=== PATIENT | female | born 1950 | race Caucasian/White ===

== ENCOUNTER 2019-11-04 14:25 | Inpatient (IN) | payer OTHER, MEDICARE ==
[2019-11-04] MEDS ORDERED: ONDANSETRON 4 MG/2 ML VIAL ONE ×2 (15:28→16:36)
[2019-11-04] MEDS ORDERED: NA CHLORIDE 0.9% 1,000 ML ONE ×2 (15:28→17:09)
[2019-11-04] MEDS ORDERED: MORPHINE 4 MG/ML SYR ONE ×2 (15:28→17:29)
[2019-11-04] MEDS ORDERED: FAMOTIDINE 20 MG/2 ML VIAL IV ONE (15:28)
[2019-11-04 15:51] LABS: Absolute Lymphocytes (CBC) 2.3 K/uL (0.7-4.9); Basophils % 0.5 % (0-1.3); Hematocrit 44.4 % (36.0-45.0); Lymphocytes % 10.4 % (15.3-44.8); MPV 8.4 fL (7.6-11.3); RBC Red Blood Cell Count 5.08 M/uL (3.86-4.86)
--- NOTE | 2019-11-04 16:26 | RAD REPORT ---
EXAM DESCRIPTION: CT - Abdomen Pelvis W Contrast - 11/04/2019 4:06 pm CLINICAL HISTORY: ABD PAIN COMPARISON: No comparisons TECHNIQUE: Biphasic, helical CT imaging of the abdomen and pelvis was performed following 100 ml non -ionic IV contrast. No oral contrast. All CT scans are performed using dose optimization technique as appropriate and may include automated exposure control or mA/KV adjustment according to patient size. FINDINGS: Minimal lung base scarring or atelectasis present. No pneumothorax or pleural effusion. No pericardial effusion. Moderate-sized hiatal hernia is present. Approximately 30% of the stomach is intrathoracic. Prominent size liver shows diffuse fatty infiltration with no focal liver lesion. No portal vein abno rmality. No gallbladder or biliary tree abnormality. Spleen is unremarkable. Patient has significant peripancreatic fluid and inflammatory stranding. There is a slight decrease i n attenuation in the head of the pancreas. Patient has at least intermediate severity pancreatitis. N o definitive pancreatic parenchymal necrosis seen. No pseudocyst or mass. Duodenal C-loop shows no me asurable secondary involvement from the acute pancreatitis. Fluid extends along the anterior pararena l fascia and minimally into each pericolic gutter. Symmetric renal function is seen with no hydronephrosis or suspicious renal mass. No pyelonephritis o r acute parenchymal process. No bladder abnormalities. No adrenal abnormalities. No dilated bowel loops or bowel wall thickening. Diverticulosis is minimal. Appendix is normal. No fr ee air or pneumatosis. No hernia, mass or bulky lymphadenopathy. No suspicious bony findings. IMPRESSION: Prominent acute pancreatitis findings present. No focal mass or pseudocyst. Attenuation/enhancement in the head of the pancreas is decreased but not definitive for pancreatic ne crosis. Diffuse fatty infiltration of the liver. Hiatal hernia with approximately 30% of the stomach intrathoracic. Appears to be postsurgical change at the diaphragmatic rene.
--- NOTE | 2019-11-04 16:35 | ER ---
Nurse's Notes [facility] Name: Eveline Carter Age: 69 yrs Sex: Female : 1950 Arrival Date: 11/04/2019 Time: 14:26 Bed 5 Private MD: Diagnosis: Abdominal tenderness;Acute pancreatitis;Congenital hiatus hernia;Elevated white blood cell count;Urinary tract infection, site not specified Presentation: 11/03 14:27 Chief complaint: EMS states: Pt c/o N/V, reports 3 episodes of vomiting today, also ph reports diffuse abdominal pain, denies diarrhea or fever, 12.5 phenergan given by EMS. Coronavirus screen: Client denies travel out of the [place] in the last 14 days. nausea, Client presents with at least one sign or symptom that may indicate coronavirus-19. Ebola Screen: No symptoms or risks identified at this time. Initial Sepsis Screen: Does the patient meet any 2 criteria? No. Patient's initial sepsis screen is negative. Does the patient have a suspected source of infection? No. Patient's initial sepsis screen is negative. Risk Assessment: Do you want to hurt yourself or someone else? Patient reports no desire to harm self or others. Onset of symptoms was November 04, 2019. 14:27 Method Of Arrival: EMS: [facility] 14:27 Acuity: NAI 3 ph Historical: - Allergies: 14:49 Erythromycin; ph - Home Meds: 14:49 furosemide 20 mg Oral tab 1 tab once daily [Active]; losartan 100 mg oral tab 1 tab ph once daily [Active]; diltiazem HCl 240 mg Oral cpER 1 cap twice a day [Active]; omeprazole 40 mg Oral cpDR 1 cap once daily [Active]; simvastatin 20 mg Oral tab 1 tab once daily [Active]; fenofibrate 160 mg oral tab 1 tab once daily [Active]; Zyrtec 10 mg Oral tab 1 tab once daily [Active]; alprazolam 0.25 mg Oral TbDL as needed [Active]; montelukast 10 mg oral tab 1 tab once daily [Active]; tizanidine 4 mg oral cap 1 cap nightly [Active]; Vitamin D Oral [Active]; magnesium oral oral [Active]; Xopenex inhalation Inhl [Active]; Symbicort 160-4.5 mcg/actuation inhalation HFAA 2 puffs 2 times per day [Active]; metformin 500 mg Oral Tb24 [Active]; - PMHx: 14:49 Hyperlipidemia; Hypertension; Anxiety; COPD; ph - Immunization history:: Adult Immunizations unknown. - Social history:: Smoking status: unknown. Screenin:37 Abuse screen: Denies threats or abuse. Denies injuries from another. Nutritional ph screening: No deficits noted. Tuberculosis screening: No symptoms or risk factors identified. Fall Risk None identified. Assessment: 14:50 General: Appears in no apparent distress. uncomfortable, Behavior is calm, cooperative, ph appropriate for age, Denies fever. Pain: Complains of pain in abdomen. Neuro: Level of Consciousness is awake, alert, obeys commands, Oriented to person, place, time, situation. Cardiovascular: Capillary refill < 3 seconds in bilateral fingers Patient's skin is warm and dry. Respiratory: Airway is patent Respiratory effort is even, unlabored, Respiratory pattern is regular, symmetrical. GI: Abdomen is round Reports lower abdominal pain, upper abdominal pain, nausea, vomiting. Derm: Skin is intact, Skin is pink, warm \T\ dry. Musculoskeletal: Circulation, motion, and sensation intact. Range of motion: intact in all extremities. 15:41 Reassessment: Patient appears in no apparent distress at this time. Patient and/or ph family updated on plan of care and expected duration. Pain level reassessed. Patient is alert, oriented x 3, equal unlabored respirations, skin warm/dry/pink. 17:00 Reassessment: Patient appears in no apparent distress at this time. Patient and/or ph family updated on plan of care and expected duration. Pain level reassessed. Patient is alert, oriented x 3, equal unlabored respirations, skin warm/dry/pink. 18:15 Reassessment: Patient appears in no apparent distress at this time. Patient and/or ph family updated on plan of care and expected duration. Pain level reassessed. Patient is alert, oriented x 3, equal unlabored respirations, skin warm/dry/pink. Attempted to call report, receiving nurse unavailable. 19:15 Reassessment: Patient appears in no apparent distress at this time. Patient and/or jb4 family updated on plan of care and expected duration. Pain level reassessed. Patient is alert, oriented x 3, equal unlabored respirations, skin warm/dry/pink. 20:15 Reassessment: Patient appears in no apparent distress at this time. Patient and/or jb4 family updated on plan of care and expected duration. Pain level reassessed. Patient is alert, oriented x 3, equal unlabored respirations, skin warm/dry/pink. Report called to DIXIE Sandy. Vital Signs: 14:27 BP 120 / 71; Pulse 68; Resp 18; Temp 98.4(O); Pulse Ox 94% on R/A; Weight 99.79 kg; ph Height 5 ft. 10 in. (177.80 cm); 15:42 BP 112 / 72; Pulse 67; Resp 16; Pulse Ox 94% on R/A; ph 16:30 BP 118 / 78; Pulse 76; Resp 16; Pulse Ox 94% on R/A; ph 17:31 BP 129 / 73; Pulse 78; Resp 18; Pulse Ox 96% on R/A; ph 18:28 BP 126 / 80; Pulse 88; Resp 18; Pulse Ox 94% on R/A; ph 19:00 BP 151 / 89; Pulse 88; Resp 16; Pulse Ox 95% on R/A; jb4 20:00 BP 143 / 71; Pulse 94; Resp 16; Pulse Ox 98% on R/A; jb4 14:27 Body Mass Index 31.57 (99.79 kg, 177.80 cm) ph ED Course: 14:26 Patient arrived in ED. ph 14:29 Darryl Victoria MD is Attending Physician. yeni 14:37 Triage completed. ph 14:49 Arm band placed on Patient placed in an exam room, on a stretcher. ph 14:49 Patient has correct armband on for positive identification. Call light in reach. Side ph rails up X 1. Pulse ox on. NIBP on. Door closed. Noise minimized. Warm blanket given. 14:51 Azucena Falk RN is Primary Nurse. ph 15:16 XRAY Chest (1 view) In Process Unspecified. EDMS 15:34 EKG done, by ED staff, reviewed by Darryl Victoria MD. dh3 15:41 Maintain EMS IV. Dressing intact. Site clean \T\ dry. Gauge \T\ site: [address]. ph 16:06 CT Abd/Pelvis - IV Contrast Only In Process Unspecified. EDMS 16:33 Saroj Henry MD is Hospitalizing Provider. yeni 17:31 No provider procedures requiring assistance completed. Patient admitted, IV remains in ph place. Administered Medications: 15:30 Drug: NS 0.9% 1000 ml Route: IV; Rate: 1 bolus; Site: left upper arm; ph 17:29 Follow up: Response: No adverse reaction; IV Status: Completed infusion; IV Intake: ph 1000ml 15:30 Drug: Zofran (Ondansetron) 4 mg Route: IVP; Site: left upper arm; ph 17:30 Follow up: Response: No adverse reaction; Nausea is decreased ph 15:32 Drug: morphine 4 mg Route: IVP; Site: left upper arm; ph 17:30 Follow up: Response: No adverse reaction; RASS: Alert and Calm (0) ph 15:34 Drug: Pepcid 20 mg Route: IVP; Site: left upper arm; ph 17:29 Follow up: Response: No adverse reaction ph 15:40 Drug: NS 0.9% 1000 ml Route: IV; Rate: 125 ml/hr; Site: left upper arm; ph 17:30 Follow up: Response: No adverse reaction; IV Status: Infusion continued upon admission ph 17:28 Drug: Zofran (Ondansetron) 4 mg Route: IVP; Site: left upper arm; ph 17:30 Follow up: Response: No adverse reaction ph 17:28 Drug: NS 0.9% 1000 ml Route: IV; Rate: 1 bolus; Site: left upper arm; ph 20:30 Follow up: Response: No adverse reaction; IV Status: Completed infusion jb4 17:28 Drug: morphine 4 mg Route: IVP; Site: left upper arm; ph 17:30 Follow up: Response: No adverse reaction; Pain is decreased; RASS: Alert and Calm (0) ph 17:29 Drug: Zosyn 3.375 grams Route: IVPB; Infused Over: 60 mins; Site: left upper arm; ph 18:06 Follow up: Response: No adverse reaction; IV Status: Completed infusion ph 17:29 Drug: NS 0.9% 1000 ml Route: IV; Rate: 1 bolus; Site: left upper arm; ph 20:30 Follow up: Response: No adverse reaction; IV Status: Completed infusion jb4 Intake: 17:29 IV: 1000ml; Total: 1000ml. ph Outcome: 16:35 Decision to Hospitalize by Provider. yeni 20:41 Admitted to Med/surg accompanied by nurse, via stretcher, room 220, Report called to guru Arzate RN 20:41 Condition: stable 20:41 Discharge instructions given to patient, Instructed on the need for admit, Demonstrated understanding of instructions. 20:42 Patient left the ED. guru Signatures: Dispatcher [employer] EDDarryl Smith MD MD cha Hall, Patricia, RN RN Andrew Billings RN RN jb4 Herrera, Deanna [facility]
--- NOTE | 2019-11-04 16:35 | EDPHYS ---
Physician Documentation [facility] Name: Eveline Carter Age: 69 yrs Sex: Female : 1950 Arrival Date: 11/04/2019 Time: 14:26 Bed 5 Private MD: RADHA Physician Darryl Victoria HPI: 11/03 14:54 This 69 yrs old Female presents to ER via EMS with complaints of yeni Nausea/Vomiting, Abdominal Pain. 14:54 The patient presents to the emergency department with nausea, vomiting, abdominal pain, yeni of the epigastric area, right upper quadrant and left upper quadrant. Onset: The symptoms/episode began/occurred 2 day(s) ago. Possible causes: unknown. The symptoms are aggravated by nothing. The symptoms are alleviated by nothing. Associated signs and symptoms: Pertinent positives: abdominal pain, nausea, vomiting. Severity of symptoms: At their worst the symptoms were moderate in the emergency department the symptoms are unchanged. The patient has not experienced similar symptoms in the past. Historical: - Allergies: 14:49 Erythromycin; ph - Home Meds: 14:49 furosemide 20 mg Oral tab 1 tab once daily [Active]; losartan 100 mg oral tab 1 tab ph once daily [Active]; diltiazem HCl 240 mg Oral cpER 1 cap twice a day [Active]; omeprazole 40 mg Oral cpDR 1 cap once daily [Active]; simvastatin 20 mg Oral tab 1 tab once daily [Active]; fenofibrate 160 mg oral tab 1 tab once daily [Active]; Zyrtec 10 mg Oral tab 1 tab once daily [Active]; alprazolam 0.25 mg Oral TbDL as needed [Active]; montelukast 10 mg oral tab 1 tab once daily [Active]; tizanidine 4 mg oral cap 1 cap nightly [Active]; Vitamin D Oral [Active]; magnesium oral oral [Active]; Xopenex inhalation Inhl [Active]; Symbicort 160-4.5 mcg/actuation inhalation HFAA 2 puffs 2 times per day [Active]; metformin 500 mg Oral Tb24 [Active]; - PMHx: 14:49 Hyperlipidemia; Hypertension; Anxiety; COPD; ph - Immunization history:: Adult Immunizations unknown. - Social history:: Smoking status: unknown. ROS: 14:56 Constitutional: Negative for fever, chills, and weight loss, Eyes: Negative for injury, yeni pain, redness, and discharge, ENT: Negative for injury, pain, and discharge, Neck: Negative for injury, pain, and swelling, Cardiovascular: Negative for chest pain, palpitations, and edema, Respiratory: Negative for shortness of breath, cough, wheezing, and pleuritic chest pain, Back: Negative for injury and pain, : Negative for injury, bleeding, discharge, and swelling, MS/Extremity: Negative for injury and deformity, Skin: Negative for injury, rash, and discoloration, Neuro: Negative for headache, weakness, numbness, tingling, and seizure, Psych: Negative for depression, anxiety, suicide ideation, homicidal ideation, and hallucinations, Allergy/Immunology: Negative for hives, rash, and allergies, Endocrine: Negative for neck swelling, polydipsia, polyuria, polyphagia, and marked weight changes, Hematologic/Lymphatic: Negative for swollen nodes, abnormal bleeding, and unusual bruising. 14:56 Abdomen/GI: Positive for abdominal pain, nausea and vomiting, of the epigastric area, right upper quadrant and left upper quadrant. Exam: 14:56 Constitutional: This is a well developed, well nourished patient who is awake, alert, yeni and in no acute distress. Head/Face: Normocephalic, atraumatic. Eyes: Pupils equal round and reactive to light, extra-ocular motions intact. Lids and lashes normal. Conjunctiva and sclera are non-icteric and not injected. Cornea within normal limits. Periorbital areas with no swelling, redness, or edema. ENT: Nares patent. No nasal discharge, no septal abnormalities noted. Tympanic membranes are normal and external auditory canals are clear. Oropharynx with no redness, swelling, or masses, exudates, or evidence of obstruction, uvula midline. Mucous membranes moist. Neck: Trachea midline, no thyromegaly or masses palpated, and no cervical lymphadenopathy. Supple, full range of motion without nuchal rigidity, or vertebral point tenderness. No Meningismus. Chest/axilla: Normal chest wall appearance and motion. Nontender with no deformity. No lesions are appreciated. Cardiovascular: Regular rate and rhythm with a normal S1 and S2. No gallops, murmurs, or rubs. Normal PMI, no JVD. No pulse deficits. Respiratory: Lungs have equal breath sounds bilaterally, clear to auscultation and percussion. No rales, rhonchi or wheezes noted. No increased work of breathing, no retractions or nasal flaring. Back: No spinal tenderness. No costovertebral tenderness. Full range of motion. Female : Normal external genitalia. MS/ Extremity: Pulses equal, no cyanosis. Neurovascular intact. Full, normal range of motion. Neuro: Awake and alert, GCS 15, oriented to person, place, time, and situation. Cranial nerves II-XII grossly intact. Motor strength 5/5 in all extremities. Sensory grossly intact. Cerebellar exam normal. Normal gait. Psych: Awake, alert, with orientation to person, place and time. Behavior, mood, and affect are within normal limits. 14:56 Skin: Appearance: Color: pale, Temperature: normal temperature, Moisture: normal moisture, petechiae, not noted, abscess, not appreciated, cellulitis, is not appreciated, induration, is not appreciated. 16:29 ECG was reviewed by the Attending Physician. [facility] Vital Signs: 14:27 BP 120 / 71; Pulse 68; Resp 18; Temp 98.4(O); Pulse Ox 94% on R/A; Weight 99.79 kg; ph Height 5 ft. 10 in. (177.80 cm); 15:42 BP 112 / 72; Pulse 67; Resp 16; Pulse Ox 94% on R/A; ph 16:30 BP 118 / 78; Pulse 76; Resp 16; Pulse Ox 94% on R/A; ph 17:31 BP 129 / 73; Pulse 78; Resp 18; Pulse Ox 96% on R/A; ph 18:28 BP 126 / 80; Pulse 88; Resp 18; Pulse Ox 94% on R/A; ph 19:00 BP 151 / 89; Pulse 88; Resp 16; Pulse Ox 95% on R/A; jb4 20:00 BP 143 / 71; Pulse 94; Resp 16; Pulse Ox 98% on R/A; jb4 14:27 Body Mass Index 31.57 (99.79 kg, 177.80 cm) ph MDM: 14:29 Patient medically screened. [facility] 14:57 Data reviewed: vital signs, nurses notes, lab test result(s), EKG, radiologic studies, [facility] CT scan, plain films. 11/03 14:54 Order name: Basic Metabolic Panel; Complete Time: 18:30 [facility] 11/03 14:54 Order name: CBC with Diff [facility] 11/03 14:54 Order name: LFT's; Complete Time: 18:30 [facility] 11/03 14:54 Order name: Magnesium; Complete Time: 18:30 [facility] 11/03 14:54 Order name: NT PRO-BNP; Complete Time: 18:30 [facility] 11/03 14:54 Order name: Troponin (emerg Dept Use Only); Complete Time: 18:30 [facility] 11/03 14:54 Order name: Urine Culture [facility] 11/03 14:54 Order name: Lipid Profile; Complete Time: 18:30 [facility] 11/03 15:57 Order name: CREATININE WHOLE BLOOD; Complete Time: 16:16 EDMS 11/03 17:22 Order name: Urinalysis EDID 11/03 17:22 Order name: CBC with Automated Diff EDMS 11/03 17:22 Order name: CBC with Automated Diff EDMS 11/03 17:22 Order name: Comprehensive Metabolic Panel EDID 11/03 17:22 Order name: Comprehensive Metabolic Panel EDID 11/03 14:54 Order name: XRAY Chest (1 view); Complete Time: 17:26 [facility] 11/03 14:54 Order name: CT Abd/Pelvis - IV Contrast Only; Complete Time: 16:39 [facility] 11/03 16:20 Order name: US Abdomen Limited [facility] 11/03 17:22 Order name: Magnesium EDID 11/03 17:22 Order name: Magnesium EDMS 11/03 17:22 Order name: Phosphorus EDMS 11/03 17:22 Order name: Phosphorus EDMS 11/03 17:24 Order name: Urine Dipstick--Ancillary (enter results); Complete Time: 18:01 11/03 18:05 Order name: Add On-Lab 11/03 18:27 Order name: Lipase; Complete Time: 18:30 EDMS 11/03 18:28 Order name: US; Complete Time: 18:30 EDMS 11/03 18:36 Order name: Manual Differential [facility] 11/03 14:54 Order name: EKG; Complete Time: 14:54 [facility] 11/03 14:54 Order name: Cardiac monitoring; Complete Time: 15:34 [facility] 11/03 14:54 Order name: EKG - Nurse/Tech; Complete Time: 15:34 [facility] 08/20 14:54 Order name: IV Saline Lock; Complete Time: 15:40 [facility] 11/03 14:54 Order name: Labs collected and sent; Complete Time: 15:40 [facility] 11/03 14:54 Order name: O2 Per Protocol; Complete Time: 15:40 [facility] 11/03 14:54 Order name: O2 Sat Monitoring; Complete Time: 15:40 [facility] 11/03 14:54 Order name: Urine Dipstick-Ancillary (obtain specimen); Complete Time: 17:22 [facility] 11/03 15:57 Order name: Labs - recollect needed: recollect green top; Complete Time: 16:34 eb 11/03 17:22 Order name: NPO EDMS 11/03 18:04 Order name: IV Saline Lock - Large Bore; Complete Time: 18:06 [facility] EC:29 Rate is 72 beats/min. Rhythm is regular. QRS [place] is Normal. CO interval is normal. QRS yeni interval is normal. QT interval is prolonged at 470 msec. No Q waves. T waves are Normal. No ST changes noted. Clinical impression: NSR w/ Non-specific ST/T Changes. Interpreted by me. Reviewed by me. Administered Medications: 15:30 Drug: NS 0.9% 1000 ml Route: IV; Rate: 1 bolus; Site: left upper arm; ph 17:29 Follow up: Response: No adverse reaction; IV Status: Completed infusion; IV Intake: ph 1000ml 15:30 Drug: Zofran (Ondansetron) 4 mg Route: IVP; Site: left upper arm; ph 17:30 Follow up: Response: No adverse reaction; Nausea is decreased ph 15:32 Drug: morphine 4 mg Route: IVP; Site: left upper arm; ph 17:30 Follow up: Response: No adverse reaction; RASS: Alert and Calm (0) ph 15:34 Drug: Pepcid 20 mg Route: IVP; Site: left upper arm; ph 17:29 Follow up: Response: No adverse reaction ph 15:40 Drug: NS 0.9% 1000 ml Route: IV; Rate: 125 ml/hr; Site: left upper arm; ph 17:30 Follow up: Response: No adverse reaction; IV Status: Infusion continued upon admission ph 17:28 Drug: Zofran (Ondansetron) 4 mg Route: IVP; Site: left upper arm; ph 17:30 Follow up: Response: No adverse reaction ph 17:28 Drug: NS 0.9% 1000 ml Route: IV; Rate: 1 bolus; Site: left upper arm; ph 20:30 Follow up: Response: No adverse reaction; IV Status: Completed infusion jb4 17:28 Drug: morphine 4 mg Route: IVP; Site: left upper arm; ph 17:30 Follow up: Response: No adverse reaction; Pain is decreased; RASS: Alert and Calm (0) ph 17:29 Drug: Zosyn 3.375 grams Route: IVPB; Infused Over: 60 mins; Site: left upper arm; ph 18:06 Follow up: Response: No adverse reaction; IV Status: Completed infusion ph 17:29 Drug: NS 0.9% 1000 ml Route: IV; Rate: 1 bolus; Site: left upper arm; ph 20:30 Follow up: Response: No adverse reaction; IV Status: Completed infusion jb4 Disposition: 11/04/19 16:35 Hospitalization ordered by Saroj Henry for Inpatient Admission. Preliminary diagnosis are Abdominal tenderness, Acute pancreatitis, Congenital hiatus hernia, Elevated white blood cell count, Urinary tract infection, site not specified. - Bed requested for Telemetry/MedSurg (Inpatient). - Status is Inpatient Admission. jb4 - Condition is Fair. - Problem is new. - Symptoms have improved. Signatures: Dispatcher [employer] EDMS Darryl Victoria MD MD cha Smirch, Shelby RN RN ss Leonardo Hernadez, TOLL TEST WORKER-C TOLL TEST WORKER-Cla1 Azucena Falk RN RN Andrew Byrd RN RN jb4 Olga Beatty Corrections: (The following items were deleted from the chart) 18:03 16:35 Hospitalization Ordered by Saroj Henry MD for Inpatient Admission. Preliminary ss diagnosis is Abdominal tenderness; Acute pancreatitis; Congenital hiatus hernia; Elevated white blood cell count. Bed requested for Telemetry/MedSurg (Inpatient). Status is Inpatient Admission. Condition is Fair. Problem is new. Symptoms have improved. [facility] 18:04 18:03 11/04/2019 16:35 Hospitalization Ordered by Saroj Henry MD for Inpatient [facility] Admission. Preliminary diagnosis is Abdominal tenderness; Acute pancreatitis; Congenital hiatus hernia; Elevated white blood cell count. Bed requested for Telemetry/MedSurg (Inpatient). Status is Inpatient Admission. Condition is Fair. Problem is new. Symptoms have improved. ss 20:42 18:04 11/04/2019 16:35 Hospitalization Ordered by Saroj Henry MD for Inpatient jb4 Admission. Preliminary diagnosis is Abdominal tenderness; Acute pancreatitis; Congenital hiatus hernia; Elevated white blood cell count; Urinary tract infection, site not specified. Bed requested for Telemetry/MedSurg (Inpatient). Status is Inpatient Admission. Condition is Fair. Problem is new. Symptoms have improved. yeni
[2019-11-04] MEDS ORDERED: PIPER/TAZO/NS 3.375gm 3.375 GM/100 ML BAG ONE (16:36)
[2019-11-04] MEDS ORDERED: ACETAMINOPHEN 500 MG TAB PO PRN (17:19)
--- NOTE | 2019-11-04 17:21 | RAD REPORT ---
EXAM DESCRIPTION: RAD - Chest Single View - 11/04/2019 3:16 pm CLINICAL HISTORY: ABDOMINAL DISTENTION COMPARISON: Two view chest October 1999 TECHNIQUE: AP portable chest image was obtained 11/04/2019 3:16 pm . FINDINGS: Lung volumes are low. This accentuates interstitial pattern. Substantial change from juan rison is doubtful. Fullness of the right hilum is probably accentuated right pulmonary artery due to shallow inspiration. Heart and vasculature are normal. No measurable pleural effusion and no pneumoth orax. No acute bony abnormality seen. No acute aortic findings suspected. IMPRESSION: Limited portable study without acute cardiopulmonary finding. Fullness of the right hilum is believed to be accentuated pulmonary artery due to low lung volume.
[2019-11-04 17:33] LABS: ALT/SGPT 84 U/L (12-78); Alkaline Phosphatase 62 U/L (45-117); BUN Blood Urea Nitrogen 22 mg/dL (7-18); Bicarbonate 21 mmol/L (21-32); Bilirubin Direct 0.1 mg/dL (0-0.2); Bilirubin Total 0.4 mg/dL (0.2-1.0); Glucose Level 151 mg/dL (74-106); HDL Cholesterol 40 mg/dL (40-60); LDL Cholesterol, Calculated 91 (<130); NT PRO-BNP 51 pg/mL (<125); Protein, Total 7.8 g/dL (6.4-8.2); Sodium Level 138 mmol/L (136-145); Troponin (Emerg Dept Use Only) < 0.02 ng/mL (0.0-0.045)
--- NOTE | 2019-11-04 17:33 | P.HP ---
Certification for Inpatient Patient admitted to: Inpatient With expected LOS: >2 Midnights Practitioner: I am a practitioner with admitting privileges, knowledge of patient current condition, hospital course, and medical plan of care. Services: Services provided to patient in accordance with Admission requirements found in Title 42 Section 412.3 of the Code of Federal Regulations Patient History Date of Service: 11/04/19 Reason for admission: Abdominal pain History of Present Illness: 69-year-old female with no significant past medical history other than hypertension, asthma, came to ER with abdominal pain which has been going on for the last 2 days and has been progressively worsening and was brought to ER. Pain is located in the epigastric region radiating to the back. Associated with nausea and vomiting. Denies any diarrhea Denies any fever or chills Patient was assessed in the ER and was found to have acute pancreatitis and was admitted for further management - Past Medical/Surgical History Past Medical History: Reviewed- Non-Contributory -: htn Past Surgical History: Reviewed- Non-Contributory -: Hystrectomy -: Hiatal Hernia - Family History Family History: Reviewed- Non-Contributory - Social History Smoking Status: Never smoker Review of Systems 10-point ROS is otherwise unremarkable Physical Examination - Vital Signs Temperature: 98.4 F Blood Pressure: 128/78 Pulse: 76 Respirations: 18 - Physical Exam General: Alert, In no apparent distress HEENT: Atraumatic, Normocephalic Neck: Supple Respiratory: Clear to auscultation bilaterally, Normal air movement Cardiovascular: Normal pulses, Regular rate/rhythm Capillary refill: <2 Seconds Gastrointestinal: W/out hepatosplenomegaly, Tenderness Musculoskeletal: No clubbing, No swelling Integumentary: No rashes Neurological: Normal speech, Normal strength at 5/5 x4 extr Lymphatics: No axilla or inguinal lymphadenopathy - Studies Laboratory Data (last 24 hrs) 11/04/19 15:30: WBC 21.8 H*, Hgb 14.6, Hct 44.4, Plt Count 279 Assessment and Plan - Problems (Diagnosis) (1) Acute pancreatitis Current Visit: Yes Status: Acute - Plan Acute pancreatitis Hypertension Hyperlipidemia Plan Monitor closely under telemetry NPO Aggressive hydration Start on PPI GI consult Comes continue home medications and titrate as needed GI/DVT prophylaxis Advanced directives full - Advance Directives Does patient have a Living Will: No Does patient have a Durable POA for Healthcare: No Time Spent Managing Pts Care (In Minutes): 42
[2019-11-04 17:34] LABS: AST/SGOT 88 U/L (15-37); Magnesium 2.1 mg/dL (1.8-2.4); Potassium 4.1 mmol/L (3.5-5.1)
[2019-11-04 17:35] LABS: Urine Blood TRACE (NEG); Urine Glucose NEGATIVE (NEG); Urine Protein TRACE (NEG); Urine Specific Gravity 1.015 (1.005-1.030)
[2019-11-04 18:27] LABS: Lipase > 30000 U/L (73-393)
--- NOTE | 2019-11-04 18:27 | RAD REPORT ---
EXAM DESCRIPTION: US - Abdomen Exam Limited - 11/04/2019 5:47 pm CLINICAL HISTORY: ABD PAIN COMPARISON: Abdomen Pelvis W Contrast dated 11/04/2019 FINDINGS: No gallstones, sludge or other abnormalities within the gallbladder lumen. There is no wal l thickening or pericholecystic fluid. No common duct stone or biliary tree dilatation identified. IMPRESSION: Normal gallbladder and biliary tree ultrasound.
[2019-11-04 18:35] LABS: Blood Morphology Comment NOT SEEN (NOT SEEN); Platelet Estimate ADEQ
[2019-11-04 21:13] VITALS: BMI 33.0
[2019-11-04] MEDS: ENOXAPARIN 40 MG/0.4 ML SQ SCH (21:46)
[2019-11-04] MEDS: Ringers Lactate 1,000 ML IV SCH (21:46)
[2019-11-04] MEDS: PANTOPRAZOLE 40 MG INJ IVP SCH (21:47)
[2019-11-04] MEDS: HYDROMORPHONE HCL 1 MG/ML INJ IV PRN (21:47)
[2019-11-05] MEDS: HYDROMORPHONE HCL 1 MG/ML INJ IV PRN ×7 (01:47→22:22)
[2019-11-05] MEDS: ONDANSETRON 4 MG/2 ML VIAL IV PRN ×3 (01:47→16:55)
[2019-11-05] MEDS: Ringers Lactate 1,000 ML IV SCH ×5 (05:40→23:49)
[2019-11-05 06:21] LABS: Absolute Lymphocytes (CBC) 1.2 K/uL (0.7-4.9); Basophils % 0.1 % (0-1.3); Hematocrit 48.8 % (36.0-45.0); Lymphocytes % 6.6 % (15.3-44.8); MPV 8.3 fL (7.6-11.3); RBC Red Blood Cell Count 5.56 M/uL (3.86-4.86)
[2019-11-05 06:56] LABS: Albumin 3.5 g/dL (3.4-5.0); Bilirubin Total 0.9 mg/dL (0.2-1.0); Magnesium 2.1 mg/dL (1.8-2.4); Potassium 4.7 mmol/L (3.5-5.1); Protein, Total 7.1 g/dL (6.4-8.2)
[2019-11-05] MEDS: ENOXAPARIN 40 MG/0.4 ML SQ SCH (08:00)
[2019-11-05] MEDS: PANTOPRAZOLE 40 MG INJ IVP SCH ×2 (08:00→20:15)
[2019-11-05] MEDS: SODIUM CHLORIDE 0.9% 10ML INJ IV PRN (08:01)
--- NOTE | 2019-11-05 12:30 | P.PN ---
Subjective Date of Service: 11/05/19 Chief Complaint: Abdominal pain Subjective: No new changes, Other (Still having pain in the abdomen Still has nausea No fever or chills) Review of Systems 10-point ROS is otherwise unremarkable Physical Examination - Vital Signs Temperature: 96.9 F Blood Pressure: 117/68 Pulse: 106 Respirations: 18 Pulse Ox (%): 93 - Physical Exam General: Alert, In no apparent distress HEENT: Atraumatic, Normocephalic Neck: Supple Respiratory: Clear to auscultation bilaterally Cardiovascular: Regular rate/rhythm, Normal S1 S2 Capillary refill: <2 Seconds Gastrointestinal: W/out hepatosplenomegaly, Tenderness Musculoskeletal: No clubbing, No swelling Integumentary: No rashes, No breakdown Neurological: Normal speech, Normal strength at 5/5 x4 extr Lymphatics: No axilla or inguinal lymphadenopathy - Studies Laboratory Data (last 24 hrs) 11/04/19 16:45: Sodium 138, Potassium 4.1, BUN 22 H, Creatinine 1.08, Glucose 151 H, Magnesium 2.1, Total Bilirubin 0.4, AST 88 H, ALT 84 H, Alkaline Phosphatase 62, Triglycerides 139, Cholesterol 159, HDL Cholesterol 40, Cholesterol/HDL Ratio 3.98, Lipase > 53029 H 11/04/19 15:30: WBC 21.8 H*, Hgb 14.6, Hct 44.4, Plt Count 279 Assessment & Plan - Problems (Diagnosis) (1) Acute pancreatitis Current Visit: Yes Status: Acute Physician Review Additional Text: Acute pancreatitis Hypertension Hyperlipidemia leukocytosis Dehydration Plan Monitor closely under telemetry NPO Aggressive hydration On PPI GI consult Comes continue home medications and titrate as needed Pain control Ultrasound abdomen shows no gallbladder stones or CBD dilation Lipid panels noted no hypertriglyceridemia patient is not on alcoholic Possibly induced by medications GI/DVT prophylaxis Advanced directives supervisor speech Spent Managing Pts Care (In Minutes): 43
[2019-11-05 17:44] LABS: Urine Appearance TURBID; Urine Blood NEGATIVE (NEG); Urine Color ORANGE; Urine Glucose NEGATIVE (NEG); Urine Protein 1+ (NEG); Urine Specific Gravity >=1.030 (1.005-1.030)
--- NOTE | 2019-11-05 17:52 | RAD REPORT ---
EXAM DESCRIPTION: RAD - Abdomen 1 View (KUB) - 11/05/2019 5:39 pm CLINICAL HISTORY: Abdomen pain. FINDINGS: The bowel gas pattern is unremarkable. Large amount stool is present throughout colon.
[2019-11-05 18:11] LABS: Urine Bilirubin NEGATIVE (NEG); Urine Microscopic Reflex ORDER UMIC
[2019-11-05 18:46] LABS: Urine Amorphous Sediment 3+ /HPF (NONE SEEN); Urine Bacteria 20-50 /HPF (<20); Urine Culture Reflex Order REFLEXED; Urine Mucus 3+ /HPF (NONE SEEN); Urine RBC <5 /HPF (NONE SEEN)
[2019-11-05] MEDS ORDERED: LORazepam 2 MG/ML VIAL IV ONE (19:00)
--- NOTE | 2019-11-05 20:13 | RAD REPORT ---
EXAM DESCRIPTION: MRICholangiogram11/05/2019 7:57 pm CLINICAL HISTORY: Abdominal pain COMPARISON: November 03, 2000 cat scan TECHNIQUE: Magnetic resonance cholangiogram was performed.3D MIP reconstruction performed FINDINGS: A filling defect within the gallbladder is not seen Most of the common bile duct and intra hepatic biliary tree is normal caliber without a filling defe ct. Mild smooth narrowing involves the distal common bile duct. Pancreatic head is enlarged and inhomogeneous. Fluid is present within the peripancreatic and anterio r pararenal spaces. A discrete pseudocyst is not seen Pancreatic duct is normal caliber IMPRESSION: Mild smooth narrowing involving distal bile duct likely due to compression by the enlarg ed pancreatic head secondary to pancreatitis
[2019-11-06] MEDS: HYDROMORPHONE HCL 1 MG/ML INJ IV PRN ×3 (01:25→08:37)
[2019-11-06] MEDS: Ringers Lactate 1,000 ML IV SCH (02:00)
[2019-11-06 04:22] LABS: Absolute Lymphocytes (CBC) 2.2 K/uL (0.7-4.9); Basophils % 0.3 % (0-1.3); Hematocrit 47.3 % (36.0-45.0); Lymphocytes % 10.5 % (15.3-44.8); MPV 8.7 fL (7.6-11.3); RBC Red Blood Cell Count 5.31 M/uL (3.86-4.86)
[2019-11-06 05:39] LABS: Potassium 5.1 mmol/L (3.5-5.1)
[2019-11-06] MEDS ORDERED: Ringers Lactate 1,000 ML IV SCH (06:16)
[2019-11-06] MEDS: SODIUM CHLORIDE 0.9% 10ML INJ IV PRN (08:26)
[2019-11-06] MEDS: ENOXAPARIN 40 MG/0.4 ML SQ SCH (08:26)
[2019-11-06] MEDS: PANTOPRAZOLE 40 MG INJ IVP SCH (08:26)
[2019-11-06] MEDS: ONDANSETRON 4 MG/2 ML VIAL IV PRN (08:38)
[2019-11-06] MEDS ORDERED: Meropenem 500 MG VIAL IV SCH (09:00)
[2019-11-06] MEDS ORDERED: Meropenem 500 MG in NA CHLORIDE 0.9% 100 ML IV SCH (09:00)
[2019-11-06] MEDS ORDERED: BISACODYL 10 MG RECTAL SUPP PR ONE (09:33)
--- NOTE | 2019-11-06 09:49 | P.PN ---
Subjective Date of Service: 11/06/19 Chief Complaint: Abdominal pain Subjective: No new changes, Other (Distended abdominal distened) Review of Systems 10-point ROS is otherwise unremarkable Physical Examination - Vital Signs Temperature: 97.8 F Blood Pressure: 101/56 Pulse: 114 Respirations: 20 Pulse Ox (%): 91 - Physical Exam General: Alert, In no apparent distress HEENT: Atraumatic, Normocephalic Neck: Supple Respiratory: Clear to auscultation bilaterally, Normal air movement Cardiovascular: Regular rate/rhythm, Normal S1 S2 Capillary refill: <2 Seconds Gastrointestinal: Distended Musculoskeletal: No clubbing, No swelling Integumentary: No rashes, No tenderness/swelling Neurological: Normal speech, Normal strength at 5/5 x4 extr Lymphatics: No axilla or inguinal lymphadenopathy Assessment & Plan - Problems (Diagnosis) (1) Acute pancreatitis Current Visit: Yes Status: Acute Physician Review Additional Text: Acute pancreatitis Hypertension Hyperlipidemia leukocytosis Dehydration Constipation Plan Monitor closely under telemetry NPO Aggressive hydration On PPI GI consult Comes continue home medications and titrate as needed Pain control Ultrasound abdomen shows no gallbladder stones or CBD dilation Lipid panels noted no hypertriglyceridemia patient is not on alcoholic Possibly induced by medications MRCP showed : Mild smooth narrowing involving distal bile duct likely due to compression by the enlarged pancreatic head secondary to pancreatitis Lipase trending down Dulcolax suppository GI/DVT prophylaxis Advanced directives full Disposition : Will get a GI consult continue aggressive hydration Start on IV antibiotics meropenem Me transfer to higher level of care if not better clinically Time Spent Managing Pts Care (In Minutes): 43
[2019-11-06] MEDS ORDERED: NA CHLORIDE 0.9% 1,000 ML IV ONE (11:27)
[2019-11-06] MEDS ORDERED: ALBUMIN HUMAN 25% 200 ML IV ONE (11:27)
[2019-11-06] MEDS ORDERED: NA CHLORIDE 0.9% 1,000 ML ONE (11:35)
[2019-11-06] MEDS ORDERED: NOREPINEPHRINE 4 MG in D5W 250 ML IV PRN (11:39)
[2019-11-06] MEDS ORDERED: D5W 1,000 ML with NA BICARB 8.4% 150 MEQ IV SCH ×2 (12:00)
[2019-11-06 12:11] LABS: Basophils % 0.5 % (0-1.3); Hematocrit 38.8 % (36.0-45.0); Lymphocytes % 20.7 % (15.3-44.8); MPV 8.4 fL (7.6-11.3); RBC Red Blood Cell Count 4.26 M/uL (3.86-4.86)
[2019-11-06 12:49] LABS: Bilirubin Total 0.8 mg/dL (0.2-1.0); Potassium 4.9 mmol/L (3.5-5.1); Troponin I 0.02 ng/mL (0.0-0.045)
--- NOTE | 2019-11-06 12:55 | CON ---
This is an emergent consult for central line since the patient right now is in code. I cannot obtain the information from her. She is right now lethargic. Right now the Rapid Response Team is working on her. They noticed the patient needs an IV access that was on the hallway and they pulled me into the central line emergently. The doctor also documented the chart about the emergency of the situat ion. I explained the best I can to the patient at this moment, the risks including an infection, ble eding, damage to adjacent structures. Under aseptic condition, under emergency situation using lidoc michelle viscous for local anesthetic, we proceeded to first prep and drape the right femoral region in u sual sterile fashion. A time-out was called. An 18-gauge needle was placed in the right femoral vei n at the first attempt. A guidewire was passed through, needle was removed, and a central line tripl e lumen was placed using Selinger technique. Excellent backflow and inflow. The line was secured in place with 2-0 nylon and covered with sterile dressings. This patient remained under a rapid respon se situation by the primary doctors and I stepped out. STORM/JOANIE Voice ID: [id number] Report ID: [id number]
[2019-11-06] MEDS ORDERED: NOREPINEPHRINE 8 MG in D5W 250 ML IV PRN ×2 (13:37→13:50)
[2019-11-06 14:15] LABS: Blood Morphology Comment NOT SEEN (NOT SEEN); Platelet Estimate ADEQ
--- NOTE | 2019-11-06 14:22 | P.DS ---
Admission Date: 11/04/19 Discharge Date: 11/06/19 Disposition: TRANSFER TO [facility] Discharge Condition: FAIR Reason for Admission: Abdominal pain - Problems (1) Acute pancreatitis Current Visit: Yes Status: Acute Brief History of Present Illness: 69-year-old female with no significant past medical history other than hypertension, asthma, came to ER with abdominal pain which has been going on for the last 2 days and has been progressively worsening and was brought to ER. Pain is located in the epigastric region radiating to the back. Associated with nausea and vomiting. Denies any diarrhea Denies any fever or chills Patient was assessed in the ER and was found to have acute pancreatitis and was admitted for further management Hospital Course: Acute pancreatitis Hypertension Hyperlipidemia leukocytosis Dehydration Constipation Acute kidney injury Course The patient was admitted and was monitored closely under telemetry. Kept NPO and was started on aggressive hydration. Started on PPI and was started on pain control Ultrasound abdomen shows no gallbladder stones or CBD dilation Lipid panels noted no hypertriglyceridemia patient is not on alcoholic Possibly induced by medications MRCP showed : Mild smooth narrowing involving distal bile duct likely due to compression by the enlarged pancreatic head secondary to pancreatitis Lipase trending down But the patient was hypotensive and found to have acute kidney injury hence initiated transfer to higher level of care. Patient had a rapid response and the blood pressure dropped. surgery was consulted for central line. Started on Levophed and aggressive hydration along with bicarb drip. Patient is being transferred to [facility] for higher level of care and possible GI workup Vital Signs/Physical Exam: Temp Pulse Resp BP Pulse Ox 97.8 F 114 H 20 101/56 L 91 11/06/19 09:57 11/06/19 09:57 11/06/19 09:57 11/06/19 09:57 11/06/19 09:57 General: Alert, Mild distress HEENT: Atraumatic, Normocephalic Neck: Supple Respiratory: Clear to auscultation bilaterally Cardiovascular: Regular rate/rhythm, Normal S1 S2 Capillary refill: <2 Seconds Gastrointestinal: Distended, Tenderness Musculoskeletal: No clubbing, No swelling Integumentary: No rashes Neurological: Normal speech, Normal strength at 5/5 x4 extr Lymphatics: No axilla or inguinal lymphadenopathy Laboratory Data at Discharge: WBC 14.5 K/uL (4.3-10.9) H D 11/06/19 12:01 Hgb 12.3 g/dL (12.0-15.0) D 11/06/19 12:01 Hct 38.8 % (36.0-45.0) D 11/06/19 12:01 Plt Count 286 K/uL (152-406) 11/06/19 12:01 Sodium 141 mmol/L (136-145) 11/06/19 12:01 Potassium 4.9 mmol/L (3.5-5.1) 11/06/19 12:01 BUN 55 mg/dL (7-18) H 11/06/19 12:01 Creatinine 3.82 mg/dL (0.55-1.3) H 11/06/19 12:01 Glucose 202 mg/dL (74-106) H 11/06/19 12:01 Phosphorus 3.0 mg/dL (2.5-4.9) 11/05/19 05:17 Magnesium 2.1 mg/dL (1.8-2.4) 11/05/19 05:17 Total Bilirubin 0.8 mg/dL (0.2-1.0) 11/06/19 12:01 AST 60 U/L (15-37) H 11/06/19 12:01 ALT 31 U/L (12-78) 11/06/19 12:01 Alkaline Phosphatase 33 U/L (45-117) L 11/06/19 12:01 Troponin I 0.02 ng/mL (0.0-0.045) 11/06/19 12:01 Triglycerides 139 mg/dL (<150) 11/04/19 16:45 Cholesterol 159 mg/dL (<200) 11/04/19 16:45 HDL Cholesterol 40 mg/dL (40-60) 11/04/19 16:45 Cholesterol/HDL Ratio 3.98 11/04/19 16:45 Lipase 7073 U/L (73-393) H 11/06/19 03:30 Home Medications: ALPRAZolam [Alprazolam] 0.5 mg PO BEDTIME 11/04/19 ALPRAZolam [Xanax] 0.25 mg PO Q12HP PRN 11/04/19 Budesonide/Formoterol Fumarate [Symbicort 160-4.5 Mcg Inhaler] 2 puff IH BID 11/04/19 Cetirizine HCl [Zyrtec] 10 mg PO BEDTIME 11/04/19 Cholecalciferol (Vitamin D3) [Vitamin D3] 1,000 mg PO DAILY 11/04/19 Diltiazem HCl [Diltiazem 12Hr ER] 240 mg PO BID 11/04/19 Fenofibrate [Tricor] 160 mg PO BEDTIME 11/04/19 Furosemide [Lasix] 20 mg PO DAILY 11/04/19 Levalbuterol Tartrate [Xopenex Hfa] 2 puff IH Q2HP PRN 11/04/19 Losartan Potassium 100 mg PO DAILY 11/04/19 Magnesium Oxide [Magnesium] 600 mg PO BEDTIME 11/04/19 Metformin ER [Glucophage ER] 500 mg PO DAILY AT SUPPER 11/04/19 Montelukast [Singulair*] 10 mg PO BEDTIME 11/04/19 Omeprazole [Prilosec] 40 mg PO BEDTIME 11/04/19 Simvastatin 20 mg PO BEDTIME 11/04/19 Tizanidine [Zanaflex] 4 mg PO BEDTIME 11/04/19 Turmeric Root Extract [Turmeric] 4,000 mg PO BID 11/04/19 Immun Glob G(IgG)/Gly/Iga Ov50 [Cuvitru 8 Gram/ 40 ml Vial] 26 gm SQ SEECOM 11/05/19 Time spent managing pt's care (in minutes): 45
[2019-11-06 15:00] LABS: Arterial Blood Carboxyhemoglob 0.8 % (0-1.5); Blood Gas Oxyhemoglobin 88.1 % (94-97); Blood O2 Saturation 90.2 % (92-98.5)
--- NOTE | 2019-11-06 15:20 | P.CNS ---
Date of Consult: 11/06/19 Reason for Consult: JAMEL , acidosis Chief Complaint: Abdominal pain History of Present Illness: A 69 Y/o woman with PMHx of HTN and Asthma admitted for severe abdominal pain , pt had progressively worsening abdominal pain , in ER lipase >[id number], her Cr was 1.0 , on 11/03 pt recived IV contrast , pt was on aggressive IVF since admission , yesterday UO significantly decreased , today pt was hypotensive and started on Levophed No NSAID this admission have abdominal pain and nausea, no diarrhea or vomiting Physical exam general: AAOX3, in moderate distress , obese Neck; Supple, No elevated JVD hear: RRR, normal S1,2 no murmur or rub Chest: CTAB, no rlaes or wheezes Abdomen: distended , tender Extremities No edema or ulcer A/P JAMEL possibly due to ischemic +/- contrast ATN cont IVF flush andrade cathter pt might require temporary dialysis if Cr cont to ternd up with acidosis avoid nsaid and contrast HAGMA cont sodium bicarb might require HD pancreatitis MRCP with enlarged head of pancrease will need transfer to higher level of care hypocalcemia due to pancreatitis and bicarb drip will replace septic Shock cont Abx Allergies erythromycin base Allergy (Verified 11/04/19 20:09) Hives Home Medications: ALPRAZolam [Alprazolam] 0.5 mg PO BEDTIME 11/04/19 ALPRAZolam [Xanax] 0.25 mg PO Q12HP PRN 11/04/19 Budesonide/Formoterol Fumarate [Symbicort 160-4.5 Mcg Inhaler] 2 puff IH BID 11/04/19 Cetirizine HCl [Zyrtec] 10 mg PO BEDTIME 11/04/19 Cholecalciferol (Vitamin D3) [Vitamin D3] 1,000 mg PO DAILY 11/04/19 Diltiazem HCl [Diltiazem 12Hr ER] 240 mg PO BID 11/04/19 Fenofibrate [Tricor] 160 mg PO BEDTIME 11/04/19 Furosemide [Lasix] 20 mg PO DAILY 11/04/19 Levalbuterol Tartrate [Xopenex Hfa] 2 puff IH Q2HP PRN 11/04/19 Losartan Potassium 100 mg PO DAILY 11/04/19 Magnesium Oxide [Magnesium] 600 mg PO BEDTIME 11/04/19 Metformin ER [Glucophage ER] 500 mg PO DAILY AT SUPPER 11/04/19 Montelukast [Singulair*] 10 mg PO BEDTIME 11/04/19 Omeprazole [Prilosec] 40 mg PO BEDTIME 11/04/19 Simvastatin 20 mg PO BEDTIME 11/04/19 Tizanidine [Zanaflex] 4 mg PO BEDTIME 11/04/19 Turmeric Root Extract [Turmeric] 4,000 mg PO BID 11/04/19 Immun Glob G(IgG)/Gly/Iga Ov50 [Cuvitru 8 Gram/ 40 ml Vial] 26 gm SQ SEECOM 11/05/19 - Past Medical/Surgical History Diabetic: No -: HTN -: HIGH CHOLESTEROL -: GAMMAGLOBULIN DEFICIENCY -: ASTHMA -: Hystrectomy -: Hiatal Hernia - Social History Smoking Status: Unknown if ever smoked Alcohol use: No CD- Drugs: No Caffeine use: No Place of Residence: Home Physical Examination Temp Pulse Resp BP Pulse Ox 97.8 F 114 H 20 101/56 L 91 11/06/19 09:57 11/06/19 09:57 11/06/19 09:57 11/06/19 09:57 11/06/19 09:57
[2019-11-06] MEDS ORDERED: SODIUM BICARB 50 MEQ/50ML VIAL ONE (16:21)
[2019-11-06 19:00] VITALS: TEMP 99.5
[2019-11-06 19:01] VITALS: BP 99/47
[2019-11-06 19:34] VITALS: O2SAT 99
== END 2019-11-07 03:32 | disposition short-term general hospital (02) | DRG 871 ==
LOC: ER 14:25 → ERHOLD 17:44 → 2ND 20:15 → ERHOLD 11-06 12:47 → 4TH 11-07 03:32
PROVIDERS: ADMIT Family Medicine; ATTEND Family Medicine
PROC: 06HY33Z Insertion of Infusion Device into Lower Vein, Percutaneous Approach (ICD-10-PCS; principal; 2019-11-04)
DX: A41.9 Sepsis, unspecified organism (principal); R65.21 Severe sepsis with septic shock; K85.30 Drug induced acute pancreatitis without necrosis or infection; N17.9 Acute kidney failure, unspecified; E87.2 Acidosis; E78.5 Hyperlipidemia, unspecified; I10 Essential (primary) hypertension; J44.9 Chronic obstructive pulmonary disease, unspecified; D72.829 Elevated white blood cell count, unspecified; E86.0 Dehydration; E83.51 Hypocalcemia; K59.00 Constipation, unspecified; E66.9 Obesity, unspecified; Z68.33 Body mass index [BMI] 33.0-33.9, adult; Z79.899 Other long term (current) drug therapy; Z79.84 Long term (current) use of oral hypoglycemic drugs; Z79.51 Long term (current) use of inhaled steroids; Z90.710 Acquired absence of both cervix and uterus; Z88.1 Allergy status to other antibiotic agents; Z11.59 Encounter for screening for other viral diseases
CPT/HCPCS: 36415; 71045; 74018; 74177; 74181; 76705; 80048; 80053; 80061; 80076; 81003; 81015; 82550; 82565; 82805; 82947; 83690; 83735; 83880; 84100; 84484; 85025; 87086; 87088; 93005; 94660; 96361; 96365; 96375; 99285; C9113; J1170; J1650; J2405; J2543; J7030; J7060; J7120; Q9967; U0002